=== PATIENT | male | born 1990 | race Caucasian/White ===

== ENCOUNTER 2022-05-25 15:41 | Emergency (ER) | payer SELFPAY ==
[~2022-05-25] VITALS: Ht 162 cm; Wt 70.0 kg
[2022-05-25 16:12] LABS: BILIRUBIN,URINE NEGATIVE (NEGATIVE); CLARITY,URINE CLEAR; COLOR,URINE YELLOW; GLUCOSE, URINE (UA) NEGATIVE (NEGATIVE); KETONES,URINE NEGATIVE (NEGATIVE); LEUKOCYTE ESTERASE ,URINE NEGATIVE (NEGATIVE); NITRITE,URINE NEGATIVE (NEGATIVE); PROTEIN,URINE NEGATIVE (NEGATIVE)
[2022-05-25] MEDS ORDERED: ORPHENADRINE 60 MG/2 ML (NORFLEX) AMP (ED ONLY) IM ONE (16:15)
[2022-05-25] MEDS ORDERED: KETOROLAC 60 MG/2 ML VIAL IM ONE (16:15)
[2022-05-25 16:19] LABS: BACTERIA,URINE TRACE /HPF; WBC,URINE RARE /HPF
--- NOTE | 2022-05-25 16:25 | ED Back Pain ---
General Chief Complaint: Back Problems Stated Complaint: BACK PAIN Nursing Triage Note: PT REPORTS TO ED POV FOR LT SIDED MID BACK PAIN. DENIES KNOWN INJURY. THIS HAS BEEN GOING ON AND OFF FOR ABOUT 20 DAYS. REPORTS THAT WHEN IT HAPPENS HE HAS STARTED TO NOTICE HIS LT LEG FEELS WEAK. PT DENIES URINARY SYMPTOMS. PT AMB. TO FT1 WITH SLIGHT LIMP. SPOUSE AT BEDSIDE. Source of Information: Patient Exam Limitations: No Limitations (JOVANNY RAWLS APRN) History of Present Illness Date Seen by Provider: May 25, 2022 Time Seen by Provider: 16:23 Initial Comments To ER with reports of left-sided mid back pain for almost a month. No fevers or chills. No known injury. The pain seems to originate down the posterior aspect of the left leg to the mid thigh. He feels like his left leg is a little bit weak as well. He does have some left sided abdominal pain at the same location just anterior to the left back pain. Pain is worsened by moving or twisting. It is not affected by deep breathing. Timing/Duration: Getting Worse, Other Pain/Injury Location: Back Associated Symptoms: denies symptoms (JOVANNY RAWLS APRN) Allergies and Home Medications Allergies Coded Allergies: No Known Drug Allergies (Unverified , 05/25/22) Patient Home Medication List Home Medication List Reviewed: Yes (JOVANNY RAWLS APRN) Hydrocodone/Acetaminophen (Hydrocodone-Acetamin 5-325 mg) 5 Mg-325 Mg Tablet, 1 TAB PO Q4H PRN for PAIN-MODERATE (5-7) Prescribed by: JOVANNY RAWLS on 05/25/22 1641 Prednisone (Prednisone) 20 Mg Tab, 40 MG PO DAILY Prescribed by: JOVANNY RAWLS on 05/25/22 1641 Review of Systems Constitutional: see HPI EENTM: see HPI Respiratory: no symptoms reported Cardiovascular: no symptoms reported Genitourinary: no symptoms reported Musculoskeletal: see HPI, back pain Skin: no symptoms reported Psychiatric/Neurological: No Symptoms Reported (JOVANNY RAWLS APRN) Past Cdnsylo-Lwloni-Qspdit Hx Patient Social History Tobacco Use?: No Substance use?: No Alcohol Use?: No Pt feels they are or have been: No (JOVANNY RAWLS APRN) Past Medical History Surgery/Hospitalization HX: DENIES PMH AND SURGERY. (JOVANNY RAWLS APRN) Physical Exam Vital Signs Vital Signs - First Documented 05/25/22 15:41 Temp 36.4 Pulse 68 Resp 18 B/P (MAP) 145/97 (113) Pulse Ox 98 O2 Delivery Room Air (LAZARA ARIAS MD) Vital Signs Capillary Refill : Less Than 3 Seconds (JOVANNY RAWLS APRN) Height, Weight, BMI Height: '" Weight: lbs. oz. kg; 26.00 BMI Method: General Appearance: No Apparent Distress, WD/WN Neck: Full Range of Motion, Normal Inspection Cardiovascular: Regular Rate, Rhythm, Normal Peripheral Pulses Respiratory: No Accessory Muscle Use, No Respiratory Distress Gastrointestinal: Normal Bowel Sounds, Soft, Other (Mild left-sided abdominal tenderness as well as left flank tenderness) Back: CVA Tenderness (L); No CVA Tenderness (R) Extremity: Normal Capillary Refill, Normal Inspection, Other (Lower extremity strength with knee extension 5 out of 5 bilaterally, dorsiflexion of the feet 5 out of 5 bilaterally.) Neurologic/Psychiatric: Alert, Oriented x3 Skin: Normal Color, Warm/Dry (JOVANNY RAWLS APRN) Progress/Results/Core Measures Results/Orders Lab Results Laboratory Tests Test 05/25/22 15:58 Range/Units Urine Color YELLOW Urine Clarity CLEAR Urine pH 6.0 5-9 Urine Specific [place] >=1.030 1.016-1.022 Urine Protein NEGATIVE NEGATIVE Urine Glucose (UA) NEGATIVE NEGATIVE Urine Ketones NEGATIVE NEGATIVE Urine Nitrite NEGATIVE NEGATIVE Urine Bilirubin NEGATIVE NEGATIVE Urine Urobilinogen 0.2 < = 1.0 MG/DL Urine Leukocyte Esterase NEGATIVE NEGATIVE Urine RBC (Auto) NEGATIVE NEGATIVE Urine RBC NONE /HPF Urine WBC RARE /HPF Urine Squamous Epithelial Cells NONE /HPF Urine Crystals NONE /LPF Urine Bacteria TRACE /HPF Urine Casts NONE /LPF Urine Mucus NEGATIVE /LPF Urine Culture Indicated NO (LAZARA ARIAS MD) Medications Given in ED Current Medications Medications Dose Ordered Sig/Jarett Route Start Time Stop Time Status Last Admin Dose Admin Ketorolac Tromethamine 60 mg ONCE ONCE IM 05/25/22 16:15 05/25/22 16:16 DC 05/25/22 16:20 60 MG Orphenadrine Citrate 60 mg ONCE ONCE IM 05/25/22 16:15 05/25/22 16:16 DC 05/25/22 16:20 60 MG (LAZARA ARIAS MD) Vital Signs/I&O 05/25/22 05/25/22 15:41 17:05 Temp 36.4 36.4 Pulse 68 84 Resp 18 18 B/P (MAP) 145/97 (113) 137/87 Pulse Ox 98 99 O2 Delivery Room Air Room Air (LAZARA ARIAS MD) Blood Pressure Mean: 113 Departure Communication (Admissions) NAME: TED LARSON [facility] REC#: [id number] PT STATUS: REG ER : 1990 PHYSICIAN: JOVANNY RAWLS APRN ADMIT DATE: 05/25/22/ER Signed Date of Exam:05/25/22 CT ABD/PELVIS WO(KIDNEY STONE) PROCEDURE: CT urinary tract, rule out kidney stone. TECHNIQUE: Multiple contiguous axial images were obtained through the abdomen and pelvis without the use of intravenous contrast. Auto Exposure Controls were utilized during the CT exam to meet ALARA standards for radiation dose reduction. INDICATION: Left flank pain. COMPARISON: None. FINDINGS: Lung bases are clear. The liver, gallbladder, pancreas, spleen, adrenals, kidneys, collecting systems, bladder and appendix are negative. No free intraperitoneal air or fluid. No lymphadenopathy. No evidence of bowel obstruction. No acute osseous findings. IMPRESSION: No acute CT findings in the abdomen or pelvis. Specifically, no renal stones or hydronephrosis. Dictated by: Dictated on workstation # [id number] Dict: 05/25/22 1636 Trans: 05/25/[address] [facility] [id number] Interpreted by: CRISTIN MARIANO MD Electronically signed by: CRISTIN MARIANO MD 05/25/22 1646 (JOVANNY RAWLS APRN) Impression Primary Impression: Lumbar radiculopathy Disposition: HOME, SELF-CARE Condition: Stable Departure-Patient Inst. Decision time for Depature: 16:37 (JOVANNY RAWLS APRN) Referrals: NO,LOCAL PHYSICIAN (PCP/Family) Primary Care Physician Patient Instructions: Radiculopathy (DC) Add. Discharge Instructions: 1. Follow-up with your regular doctor next week return to ER for any concerns medication as directed. Scripts Hydrocodone/Acetaminophen (Hydrocodone-Acetamin 5-325 mg) 5 Mg-325 Mg Tablet 1 TAB PO Q4H PRN for PAIN-MODERATE (5-7), #14 TAB Prov: JOVANNY RAWLS APRN 05/25/22 Prednisone (Prednisone) 20 Mg Tab 40 MG PO DAILY, #6 TAB 0 Refills Prov: JOVANNY RAWLS APRN 05/25/22 ATTENDING PHYSICIAN NOTE: I was physically present as attending physician in the emergency department during the care of this patient, but I was not directly involved in the decision making or delivery of care for this patient. (LAZARA ARIAS MD) Images Torso/Trunk 1 - Tenderness (JOVANNY RAWLS APRN) JOVANNY RAWLS APRN May 25, 2022 16:25 LAZARA ARIAS MD May 25, 2022 20:38
[2022-05-25] MEDS ORDERED: ACHD5005 PO (16:41)
[2022-05-25] MEDS ORDERED: PRD20T PO (16:41)
--- NOTE | 2022-05-25 16:42 | Diagnostic Imaging Report ---
PROCEDURE: CT urinary tract, rule out kidney stone. TECHNIQUE: Multiple contiguous axial images were obtained through the abdomen and pelvis without the use of intravenous contrast. Auto Exposure Controls were utilized during the CT exam to meet ALARA standards for radiation dose reduction. INDICATION: Left flank pain. COMPARISON: None. FINDINGS: Lung bases are clear. The liver, gallbladder, pancreas, spleen, adrenals, kidneys, collecting systems, bladder and appendix are negative. No free intraperitoneal air or fluid. No lymphadenopathy. No evidence of bowel obstruction. No acute osseous findings. IMPRESSION: No acute CT findings in the abdomen or pelvis. Specifically, no renal stones or hydronephrosis. Dictated by: Dictated on workstation # [id number]
[2022-05-25 17:05] VITALS: BP 137/87
== END 2022-05-25 17:05 | disposition home or self-care (01) ==
LOC: ER 15:44
DX: M54.16 Radiculopathy, lumbar region (principal); Z28.310 Unvaccinated for COVID-19
CPT/HCPCS: 74176; 81000